=== PATIENT | male | born 1995 | race Caucasian/White ===

== ENCOUNTER → 2018-10-28 | Outpatient (REF) | payer OTHER | LOC: M SFHCLERA 13:21 | PROVIDERS: ATTEND Nurse Practitioner Family | DX: J00 Acute nasopharyngitis [common cold] (principal) ==

== ENCOUNTER → 2019-02-10 | Outpatient (CLI) | payer OTHER ==
--- NOTE | 2019-02-14 13:49 | REP ---
Right calcaneus two views : There is no fracture or dislocation. Mineralization and joint spaces are normal. There are no calcifications or foreign bodies. Impression: Negative right calcaneus . Electronically Signed by Romel Horne MD 02/10/2019 10:41 A
--- NOTE | 2019-02-14 13:49 | REP ---
Right foot four views : There is no fracture or dislocation. Mineralization and joint spaces are normal. There are no calcifications or foreign bodies. A bone island is incidentally identified in the navicular ossicle. Impression: Negative right foot . Electronically Signed by Romel Horne MD 02/10/2019 10:40 A
== END ==
LOC: M LRY 10:00
PROVIDERS: ATTEND Physician Assistant
DX: M79.671 Pain in right foot (principal)

== ENCOUNTER 2019-02-17 16:12 | Emergency (ER) | payer OTHER ==
[~2019-02-17] VITALS: Ht 188 cm; Wt 104.5 kg
[2019-02-17 16:12] VITALS: BP 125/74
== END 2019-02-17 17:06 | disposition home or self-care (01) ==
LOC: M ED 16:12
DX: M25.571 Pain in right ankle and joints of right foot (principal)

== ENCOUNTER 2020-05-19 13:38 | Emergency (ER) | payer OTHER ==
[~2020-05-19] VITALS: Ht 188 cm; Wt 109.1 kg
[2020-05-19] MEDS ORDERED: ACETAMINOPHEN 500 MG TAB PO ONE (14:45)
[2020-05-19] MEDS ORDERED: IBUPROFEN 800 MG TAB PO ONE (14:45)
[2020-05-19 15:31] LABS: INFLUENZA A AMPLIFICATION NEGATIVE (NEGATIVE); INFLUENZA B AMPLIFICATION NEGATIVE (NEGATIVE)
[2020-05-19] MEDS ORDERED: NS 1,000 ML IV ONE (16:00)
--- NOTE | 2020-05-19 16:22 | REP ---
INDICATION: cough, fever, sob r/o pneumonia COMPARISON: None. TECHNIQUE: PA and lateral. FINDINGS: The mediastinum and cardiac silhouette are normal. The lung bearden are clear and without acute consolidation, effusion, or pneumothorax. The skeletal structures are intact and normal. IMPRESSION: No acute cardiopulmonary process. <Electronically signed by Zak Aviles > 05/19/20 1226
[2020-05-19] MEDS ORDERED: TESS100C PO (17:11)
[2020-05-19] MEDS ORDERED: MAGICMW SSP (17:11)
[2020-05-19 17:19] VITALS: BP 129/80
== END 2020-05-19 17:23 | disposition home or self-care (01) ==
LOC: M ED 13:38
DX: J02.9 Acute pharyngitis, unspecified (principal); R50.9 Fever, unspecified; R05 Cough; R53.81 Other malaise; R51.9 Headache, unspecified

== ENCOUNTER 2020-08-22 20:35 | Emergency (ER) | payer OTHER, SELFPAY ==
[~2020-08-22] VITALS: Ht 188 cm; Wt 114.3 kg
[~2020-08-22 20:35] MED LIST: MAGICMW SSP; TESS100C PO
--- NOTE | 2020-08-22 21:55 | REPVR ---
PROCEDURE INFORMATION: Exam: XR Chest Exam date and time: 08/22/2020 9:46 PM Age: 25 years old Clinical indication: Other: Chest pain TECHNIQUE: Imaging protocol: XR of the chest Views: 1 view. COMPARISON: CR Chest, 2 view PA, Lat 05/19/2020 4:13 PM FINDINGS: Lungs: Unremarkable. No consolidation. Pleural spaces: Unremarkable. No pleural effusion. No pneumothorax. Heart/Mediastinum: Unremarkable. No cardiomegaly. Bones/joints: Unremarkable. IMPRESSION: No acute findings. Electronically signed by: Diego Perez On 08/22/2020 21:55:32 PM
[2020-08-22 22:10] LABS: BASO # 0.1 10^3/uL (0.0-0.2); BASO % 0.8 % (0.0-1.0); EOS # 0.1 10^3/uL (0.0-0.5); EOS % 0.8 % (0.0-3.0); HEMATOCRIT 47.1 % (42.0-52.0); LYMPH # 2.7 10^3/uL (1.5-5.0); LYMPH % 30.5 % (24.0-44.0); MEAN CORPUSCULAR VOLUME 79.4 fl (80.0-96.0); MONO # 1.1 10^3/uL (0.0-0.8); MONO % 12.5 % (2.0-8.0); NEUTROPHILS # 4.9 10^3/uL (1.5-8.5); NEUTROPHILS % 54.8 % (36.0-66.0); PLATELET COUNT, AUTOMATED 395 10^3/uL (150-450); RED BLOOD COUNT 5.93 10^6/uL (4.30-6.10)
[2020-08-22 22:42] LABS: ALBUMIN 4.6 GM/DL (3.2-5.2); ALT/SGPT 63 U/L (12-78); BILIRUBIN,DIRECT 0.1 MG/DL (0.0-0.2); BILIRUBIN,TOTAL 0.7 MG/DL (0.2-1.0); BLOOD UREA NITROGEN 15 MG/DL (7-18); CALCIUM LEVEL 9.1 MG/DL (8.5-10.1); CARBON DIOXIDE LEVEL 29 MEQ/L (21-32); CHLORIDE LEVEL 102 MEQ/L (98-107); CK-MB VALUE MASS 1.2 NG/ML (<3.6); CPK CREATINE PHOSPHOKINASE 108 U/L (39-308); CREATININE FOR GFR 0.95 MG/DL (0.70-1.30); GLOMERULAR FILTRATION RATE > 60.0 (>60); GLUCOSE, FASTING 85 MG/DL (70-100); LIPASE 91 U/L (73-393); MB/CK RELATIVE INDEX 1.11 (< OR =4); POTASSIUM SERUM 4.2 MEQ/L (3.5-5.1); SODIUM LEVEL 140 MEQ/L (136-145); THYROID STIMULATING HORMONE 0.717 uIU/ML (0.358-3.740); TOTAL PROTEIN 7.9 GM/DL (6.4-8.2); TROPONIN I < 0.02 NG/ML (< 0.10)
[2020-08-22 23:22] VITALS: BP 109/60
--- NOTE | 2020-08-23 08:18 | ECGEPIP ---
[facility] - ED Test Date: 2020-08-22 Pat Name: KAYLI BURGER Department: Room: - Gender: Male [employer]: : 1995 Requested By: Deo Bourgeois Order Number: [id number] Reading MD: Uma Mejia Measurements Intervals [place] Rate: 90 P: 31 CA: 154 QRS: 160 QRSD: 94 T: 4 QT: 364 QTc: 445 Interpretive Statements Normal sinus rhythm Right axis deviation Right ventricular hypertrophy NSTTW abnormalities, clinical correlation Electronically Signed on 08-23-2020 8:18:34 EST by Uma Mejia
== END 2020-08-22 23:25 | disposition home or self-care (01) ==
LOC: M ED 20:35
DX: R07.89 Other chest pain (principal); I42.2 Other hypertrophic cardiomyopathy

== ENCOUNTER 2021-01-15 21:30 | Emergency (ER) | payer OTHER ==
[~2021-01-15] VITALS: Ht 188 cm; Wt 118.2 kg
[2021-01-15] MEDS ORDERED: KETOROLAC 60MG 2ML VIAL IM ONE (22:10)
--- NOTE | 2021-01-16 | REPVR ---
PROCEDURE INFORMATION: Exam: XR Sacrum and Coccyx, 2 or More Views Exam date and time: 01/15/2021 10:25 PM Age: 26 years old Clinical indication: Pain in coccyx area; Additional info: PT tender severe, long car ride, injury yrs ago TECHNIQUE: Imaging protocol: XR of the sacrum and coccyx, 2 or more views. COMPARISON: No relevant prior studies available. FINDINGS: Bones/joints: Joint spaces are normal. No fracture or malalignment. Soft tissues: Normal. IMPRESSION: No acute findings. Electronically signed by: Edgar Mccain On 01/15/2021 23:59:36 PM
--- NOTE | 2021-01-16 00:01 | REPVR ---
PROCEDURE INFORMATION: Exam: XR Lumbosacral Spine Exam date and time: 01/15/2021 10:25 PM Age: 26 years old Clinical indication: Low back pain; Additional info: PT tender severe, long car ride, injury yrs ago TECHNIQUE: Imaging protocol: XR of the lumbosacral spine. Views: 4 or 5 views. COMPARISON: No relevant prior studies available. FINDINGS: Bones/joints: Unremarkable. No acute fracture. Normal alignment. Disc spaces and facets are unremarkable. Soft tissues: Unremarkable. IMPRESSION: No acute findings. Electronically signed by: Edgar Mccain On 01/16/2021 00:01:15 AM
[2021-01-16] MEDS ORDERED: AUGMENTIN 875 MG TAB PO ONE (00:20)
[2021-01-16] MEDS ORDERED: HYDR-3713 PO ×2 (00:20→00:49)
[2021-01-16] MEDS ORDERED: AUGM875T28 PO (00:20)
[2021-01-16] MEDS ORDERED: NORCO 5/325MG TABLET (BULK FOR ED) PO ONE (00:20)
[2021-01-16 00:34] VITALS: BP 132/72
== END 2021-01-16 00:40 | disposition home or self-care (01) ==
LOC: M ED 21:30
DX: L05.01 Pilonidal cyst with abscess (principal); G89.29 Other chronic pain; M54.5 Low back pain
CPT/HCPCS: 72110; 72220; 96372; 99283; J1885

== ENCOUNTER 2021-01-17 23:05 | Emergency (ER) | payer OTHER ==
[~2021-01-17] VITALS: Ht 188 cm; Wt 118.2 kg
[2021-01-17 23:05] VITALS: BP 165/79
[~2021-01-17 23:05] MED LIST changes: +AUGM875T28 PO; +HYDR-3713 PO
== END 2021-01-18 01:47 | disposition left against medical advice (07) ==
LOC: M ED 23:05
DX: Z53.21 Procedure and treatment not carried out due to patient leaving prior to being seen by health care provider (principal)